=== PATIENT | male | born 1960 | race Two or more races ===

== ENCOUNTER 2017-11-08 10:51 | Inpatient (IN) | payer OTHER ==
[2017-11-08 12:05] VITALS: BMI 23.3
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
[2017-11-08] MEDS ORDERED: ACETAMINOPHEN 325 MG TABLET (FP) PO PRN (13:09)
[2017-11-08] MEDS ORDERED: LOPERAMIDE HCL 2 MG CAPSULE PO PRN (13:09)
[2017-11-08] MEDS ORDERED: P-EPHED 60MG/TRIPROLIDI 2.5MG TABLET PO PRN (13:09)
[2017-11-08] MEDS ORDERED: MAGNESIUM HYDROX 2400MG/30ML ORAL SUSPENSION 30 ML CUP PO PRN (13:09)
[2017-11-08] MEDS ORDERED: MAG HYDROX/AL HYDROX/SIMETH 30 ML UNIT-DOSE CUP PO PRN (13:09)
[2017-11-08] MEDS ORDERED: NICOTINE POLACRILEX 4 MG GUM BUC PRN (13:09)
[2017-11-08] MEDS ORDERED: guaiFENesin/D-METHORPHAN HB 10 ML UNIT-DOSE CUPS PO PRN (13:09)
[2017-11-08] MEDS ORDERED: MENTHOL/PHENOL 1 EACH UD MM PRN (13:09)
[2017-11-08] MEDS ORDERED: MAGNESIUM CITRATE 300 ML BOTTLE PO PRN (13:09)
[2017-11-08] MEDS ORDERED: METHADONE HCL 10 MG TABLET (FOR DETOX USE ONLY) PO ONE ×2 (13:59→23:00)
[2017-11-08] MEDS: diazePAM 5 MG TABLET PO PRN ×2 (15:02→22:23)
[2017-11-08 16:58] LABS: URINE APPEARANCE SLCLOUDY; URINE BILIRUBIN NEGATIVE (NEGATIVE); URINE BLOOD 2+ (NEGATIVE); URINE COLOR YELLOW; URINE GLUCOSE (UA) NEGATIVE (NEGATIVE); URINE KETONE TRACE (NEGATIVE); URINE NITRITE NEGATIVE (NEGATIVE)
[2017-11-08 17:06] LABS: URINE LEUK ESTERASE 3+ (NEGATIVE); URINE PROTEIN 1+ (NEGATIVE)
[2017-11-08 17:26] LABS: URINE BACTERIA RARE /hpf (NONE SEEN); URINE HYALINE CAST 4 /lpf; URINE MUCUS RARE
[2017-11-08] MEDS: THIAMINE HCL 100 MG TABLET (FP) PO SCH (22:23)
[2017-11-09] MEDS: hydrOXYzine PAMOATE 50 MG CAPSULE (FP) PO PRN (00:39)
[2017-11-09] MEDS: diazePAM 5 MG TABLET PO PRN ×3 (06:06→22:46)
[2017-11-09] MEDS ORDERED: METHADONE HCL 10 MG TABLET (FOR DETOX USE ONLY) PO ONE (10:00)
[2017-11-09] MEDS: PRENATAL VITAMINS W/ FOLIC ACID TABLET (FP) PO SCH (10:31)
[2017-11-09] MEDS: NICOTINE 7 MG/24 HOURS TOPICAL PATCH TD SCH (10:31)
[2017-11-09 11:04] LABS: HEMATOCRIT 38.2 % (35.4-49); HEMOGLOBIN 12.5 GM/dL (11.7-16.9); MCH 30.3 pg (25.7-33.7); MCHC 32.8 g/dl (32.0-35.9); MEAN CELL VOLUME 92.3 fl (80-96); MEAN PLT VOLUME 11.3 fl (7.5-11.1); RBC 4.14 M/mm3 (4.00-5.60); RDW 14.6 % (11.9-15.9); WHITE BLOOD COUNT 7.5 K/mm3 (4.0-10.0)
[2017-11-09 11:05] LABS: ALBUMIN 3.4 g/dl (3.4-5.0); ANION GAP 6 (8-16); BLOOD UREA NITROGEN 15 mg/dL (7-18); CALCIUM 8.9 mg/dL (8.5-10.1); CHLORIDE 108 mmol/L (98-107); CO2 28 mmol/L (21-32); GLUCOSE,RANDOM 114 mg/dL (74-106); SODIUM 142 mmol/L (136-145)
[2017-11-09 11:09] LABS: ALK PHOS 117 U/L (45-117); BILIRUBIN,TOTAL 0.3 mg/dL (0.2-1.0); SGOT/AST 13 U/L (15-37); SGPT/ALT 18 U/L (12-78); TOT PROT 6.7 g/dl (6.4-8.2)
[2017-11-09 12:00] LABS: PLATELET COUNT 103 K/MM3 (134-434)
--- NOTE | 2017-11-09 13:22 | PN ---
BHS COWS - Scale Resting Pulse: 0= [place] 80 or Below Sweatin= Chills/Flushing Restless Observation: 1= Difficult to Sit Still Pupil Size: 5= Only [place] Seen Bone or Joint Aches: 2= Severe Diffuse Aches Runny Nose/ Eye Tearin= Nasal Congestion GI Upset > 30mins: 2= Nausea/Diarrhea Tremor Observation of Outstretched Hands: 2= Slight Tremor Visible Yawning Observation: 1= 1-2x During Session Anxiety or Irritability: 2=Irritable/Anxious Goose Flesh Skin: 0=Smooth Skin COWS Score: 17 BHS Progress Note (SOAP) Subjective: Shakes, sweats, headache, N/V and malaise Objective: 11/09/17 13:19 Vital Signs 11/09/17 11/09/17 06:17 09:43 Temperature 98.2 F 97.3 F L Pulse Rate 49 L 88 Respiratory 18 20 Rate Blood Pressure 118/70 129/62 Laboratory Tests 11/08/17 11/09/17 11/09/17 14:40 05:40 05:40 WBC 7.5 D RBC 4.14 Hgb 12.5 Hct 38.2 MCV 92.3 MCH 30.3 MCHC 32.8 RDW 14.6 Plt Count 103 L D MPV 11.3 H D Platelet Comment Sodium 142 Potassium 4.0 Chloride 108 H Carbon Dioxide 28 Anion Gap 6 L BUN 15 D Creatinine 1.0 D Creat Clearance w eGFR > 60 Random Glucose 114 H D Calcium 8.9 Total Bilirubin 0.3 AST 13 L D ALT 18 D Alkaline Phosphatase 117 D Total Protein 6.7 Albumin 3.4 D Urine Color Yellow Urine Appearance Slcloudy Urine pH 5.0 Ur Specific [place] 1.024 Urine Protein 1+ H Urine Glucose (UA) Negative Urine Ketones Trace H Urine Blood 2+ H Urine Nitrite Negative Urine Bilirubin Negative Urine Urobilinogen 2.0 Ur Leukocyte Esterase 3+ H Urine WBC (Auto) 372 Urine RBC (Auto) 24 Urine Bacteria Rare Hyaline Casts 4 Urine Mucus Rare RPR Titer HIV 1&2 Antibody Screen HIV P24 Antigen 11/09/17 11/09/17 05:40 09:15 WBC RBC Hgb Hct MCV MCH MCHC RDW Plt Count MPV Platelet Comment Sodium Potassium Chloride Carbon Dioxide Anion Gap BUN Creatinine Creat Clearance w eGFR Random Glucose Calcium Total Bilirubin AST ALT Alkaline Phosphatase Total Protein Albumin Urine Color Urine Appearance Urine pH Ur Specific [place] Urine Protein Urine Glucose (UA) Urine Ketones Urine Blood Urine Nitrite Urine Bilirubin Urine Urobilinogen Ur Leukocyte Esterase Urine WBC (Auto) Urine RBC (Auto) Urine Bacteria Hyaline Casts Urine Mucus RPR Titer Nonreactive HIV 1&2 Antibody Screen Negative HIV P24 Antigen Negative Lab noted, 3+ leukocyte estrease, he denies hematuria, frequency, flank pain or burning with urination Assessment: 11/09/17 13:21 withdrawals x Plan: Continue detox, repeat UA Urine C/S
--- NOTE | 2017-11-09 13:43 | EKG ---
Test Reason : Blood Pressure : / mmHG Vent. Rate : 053 BPM Atrial Rate : 053 BPM P-R Int : 146 ms QRS Dur : 090 ms QT Int : 434 ms P-R-T Axes : 046 054 037 degrees QTc Int : 407 ms SINUS BRADYCARDIA WITH SINUS ARRHYTHMIA WHEN COMPARED WITH ECG OF 03-AUG-2014 02:51, NO SIGNIFICANT CHANGE WAS FOUND Confirmed by SILVESTRE STEEL MD ([id number]) on 11/09/2017 1:43:16 PM Referred By: Confirmed By:SILVESTRE STEEL MD
[2017-11-09] MEDS: THIAMINE HCL 100 MG TABLET (FP) PO SCH (22:44)
[2017-11-10] MEDS: hydrOXYzine PAMOATE 50 MG CAPSULE (FP) PO PRN (00:49)
[2017-11-10] MEDS: diazePAM 5 MG TABLET PO PRN ×3 (05:03→22:36)
[2017-11-10] MEDS: IBUPROFEN 400 MG TABLET (FP) PO PRN ×2 (07:01→14:41)
[2017-11-10] MEDS ORDERED: METHADONE HCL 5 MG TABLET (FOR DETOX USE ONLY) PO ONE (10:00)
[2017-11-10] MEDS: PRENATAL VITAMINS W/ FOLIC ACID TABLET (FP) PO SCH (10:09)
[2017-11-10] MEDS: NICOTINE 7 MG/24 HOURS TOPICAL PATCH TD SCH (10:10)
--- NOTE | 2017-11-10 13:44 | PN ---
BHS COWS - Scale Resting Pulse: 0= [place] 80 or Below Sweatin= Chills/Flushing Restless Observation: 1= Difficult to Sit Still Pupil Size: 0= Normal to Room Light Bone or Joint Aches: 1= Mild Discomfort Runny Nose/ Eye Tearin= Runny Nose/Eyes GI Upset > 30mins: 2= Nausea/Diarrhea Tremor Observation of Outstretched Hands: 1= Tremor [place], Not Seen Yawning Observation: 0= None Anxiety or Irritability: 2=Irritable/Anxious Goose Flesh Skin: 0=Smooth Skin COWS Score: 10 BHS Progress Note (SOAP) Subjective: Sweating, restless, interrupted sleep, body aches Objective: 11/10/17 13:41 Vital Signs Temperature 98.4 F 11/10/17 09:53 Pulse Rate 68 11/10/17 09:53 Respiratory Rate 16 11/10/17 09:53 Blood Pressure 114/69 11/10/17 09:53 O2 Sat by Pulse Oximetry (%) Laboratory Last Values WBC 7.5 K/mm3 (4.0-10.0) D 11/09/17 05:40 RBC 4.14 M/mm3 (4.00-5.60) 11/09/17 05:40 Hgb 12.5 GM/dL (11.7-16.9) 11/09/17 05:40 Hct 38.2 % (35.4-49) 11/09/17 05:40 MCV 92.3 fl (80-96) 11/09/17 05:40 MCH 30.3 pg (25.7-33.7) 11/09/17 05:40 MCHC 32.8 g/dl (32.0-35.9) 11/09/17 05:40 RDW 14.6 % (11.9-15.9) 11/09/17 05:40 Plt Count 103 K/MM3 (134-434) L D 11/09/17 05:40 MPV 11.3 fl (7.5-11.1) H D 11/09/17 05:40 Platelet Comment 11/09/17 05:40 Sodium 142 mmol/L (136-145) 11/09/17 05:40 Potassium 4.0 mmol/L (3.5-5.1) 11/09/17 05:40 Chloride 108 mmol/L (98-107) H 11/09/17 05:40 Carbon Dioxide 28 mmol/L (21-32) 11/09/17 05:40 Anion Gap 6 (8-16) L 11/09/17 05:40 BUN 15 mg/dL (7-18) D 11/09/17 05:40 Creatinine 1.0 mg/dL (0.7-1.3) D 11/09/17 05:40 Creat Clearance w eGFR > 60 (>60) 11/09/17 05:40 Random Glucose 114 mg/dL (74-106) H D 11/09/17 05:40 Calcium 8.9 mg/dL (8.5-10.1) 11/09/17 05:40 Total Bilirubin 0.3 mg/dL (0.2-1.0) 11/09/17 05:40 AST 13 U/L (15-37) L D 11/09/17 05:40 ALT 18 U/L (12-78) D 11/09/17 05:40 Alkaline Phosphatase 117 U/L (45-117) D 11/09/17 05:40 Total Protein 6.7 g/dl (6.4-8.2) 11/09/17 05:40 Albumin 3.4 g/dl (3.4-5.0) D 11/09/17 05:40 Urine Color Yellow 11/08/17 14:40 Urine Appearance Slcloudy 11/08/17 14:40 Urine pH 5.0 (5.0-8.0) 11/08/17 14:40 Ur Specific [place] 1.024 (1.001-1.035) 11/08/17 14:40 Urine Protein 1+ (NEGATIVE) H 11/08/17 14:40 Urine Glucose (UA) Negative (NEGATIVE) 11/08/17 14:40 Urine Ketones Trace (NEGATIVE) H 11/08/17 14:40 Urine Blood 2+ (NEGATIVE) H 11/08/17 14:40 Urine Nitrite Negative (NEGATIVE) 11/08/17 14:40 Urine Bilirubin Negative (NEGATIVE) 11/08/17 14:40 Urine Urobilinogen 2.0 mg/dL (0.2-1.0) 11/08/17 14:40 Ur Leukocyte Esterase 3+ (NEGATIVE) H 11/08/17 14:40 Urine WBC (Auto) 372 /hpf (3-5) 11/08/17 14:40 Urine RBC (Auto) 24 /hpf (0-3) 11/08/17 14:40 Urine Bacteria Rare /hpf (NONE SEEN) 11/08/17 14:40 Hyaline Casts 4 /lpf 11/08/17 14:40 Urine Mucus Rare 11/08/17 14:40 RPR Titer Nonreactive (NONREACTIVE) 11/09/17 05:40 HIV 1&2 Antibody Screen Negative 11/09/17 09:15 HIV P24 Antigen Negative 11/09/17 09:15 Labs noted, repeat U/A ordered not yet collected Assessment: 11/10/17 13:42 withdrawal sx Plan: Continue detox Collect U/A
[2017-11-10 16:21] LABS: URINE APPEARANCE SLCLOUDY; URINE BILIRUBIN NEGATIVE (NEGATIVE); URINE BLOOD 2+ (NEGATIVE); URINE COLOR YELLOW; URINE GLUCOSE (UA) NEGATIVE (NEGATIVE); URINE KETONE NEGATIVE (NEGATIVE); URINE NITRITE NEGATIVE (NEGATIVE); URINE UROBILINOGEN NEGATIVE mg/dL (0.2-1.0)
[2017-11-10 16:30] LABS: URINE LEUK ESTERASE 3+ (NEGATIVE); URINE PROTEIN 2+ (NEGATIVE)
[2017-11-10 16:44] LABS: EPI CELLS RARE /HPF (FEW); URINE BACTERIA FEW /hpf (NONE SEEN); URINE MUCUS RARE
[2017-11-10] MEDS: THIAMINE HCL 100 MG TABLET (FP) PO SCH (21:31)
[2017-11-11] MEDS: hydrOXYzine PAMOATE 50 MG CAPSULE (FP) PO PRN (00:59)
[2017-11-11] MEDS: diazePAM 5 MG TABLET PO PRN ×2 (05:12→10:09)
[2017-11-11] MEDS ORDERED: METHADONE HCL 5 MG TABLET (FOR DETOX USE ONLY) PO ONE (10:00)
[2017-11-11] MEDS: PRENATAL VITAMINS W/ FOLIC ACID TABLET (FP) PO SCH (10:09)
[2017-11-11] MEDS: NICOTINE 7 MG/24 HOURS TOPICAL PATCH TD SCH (10:10)
[2017-11-11] MEDS ORDERED: diphenhydrAMINE HCL 50 MG CAPSULE PO PRN (10:13)
--- NOTE | 2017-11-11 10:47 | PN ---
BHS Progress Note (SOAP) Subjective: Sweating, chills, interrupted sleep Objective: 11/11/17 10:46 Last Vital Signs Temp Pulse Resp BP Pulse Ox 97 F L 63 18 126/79 11/11/17 06:03 11/11/17 06:03 11/11/17 06:03 11/11/17 06:03 Laboratory Tests 11/08/17 11/09/17 11/09/17 14:40 05:40 05:40 WBC 7.5 D RBC 4.14 Hgb 12.5 Hct 38.2 MCV 92.3 MCH 30.3 MCHC 32.8 RDW 14.6 Plt Count 103 L D MPV 11.3 H D Platelet Comment Sodium 142 Potassium 4.0 Chloride 108 H Carbon Dioxide 28 Anion Gap 6 L BUN 15 D Creatinine 1.0 D Creat Clearance w eGFR > 60 Random Glucose 114 H D Calcium 8.9 Total Bilirubin 0.3 AST 13 L D ALT 18 D Alkaline Phosphatase 117 D Total Protein 6.7 Albumin 3.4 D Urine Color Yellow Urine Appearance Slcloudy Urine pH 5.0 Ur Specific [place] 1.024 Urine Protein 1+ H Urine Glucose (UA) Negative Urine Ketones Trace H Urine Blood 2+ H Urine Nitrite Negative Urine Bilirubin Negative Urine Urobilinogen 2.0 Ur Leukocyte Esterase 3+ H Urine WBC (Auto) 372 Urine RBC (Auto) 24 Ur Epithelial Cells Urine Bacteria Rare Hyaline Casts 4 Urine Mucus Rare RPR Titer HIV 1&2 Antibody Screen HIV P24 Antigen 11/09/17 11/09/17 11/10/17 05:40 09:15 15:30 WBC RBC Hgb Hct MCV MCH MCHC RDW Plt Count MPV Platelet Comment Sodium Potassium Chloride Carbon Dioxide Anion Gap BUN Creatinine Creat Clearance w eGFR Random Glucose Calcium Total Bilirubin AST ALT Alkaline Phosphatase Total Protein Albumin Urine Color Yellow Urine Appearance Slcloudy Urine pH 7.0 D Ur Specific [place] 1.014 Urine Protein 2+ H Urine Glucose (UA) Negative Urine Ketones Negative Urine Blood 2+ H Urine Nitrite Negative Urine Bilirubin Negative Urine Urobilinogen Negative Ur Leukocyte Esterase 3+ H Urine WBC (Auto) 43 Urine RBC (Auto) 137 Ur Epithelial Cells Rare Urine Bacteria Few Hyaline Casts Urine Mucus Rare RPR Titer Nonreactive HIV 1&2 Antibody Screen Negative HIV P24 Antigen Negative Labs noted: abnormal UA Assessment: 11/11/17 10:46 Withdrawal symptoms Abnormal UA noted Plan: Continue detox Abnormal UA: encouraged to drink lots of water, follow up on urine culture
[2017-11-11] MEDS: THIAMINE HCL 100 MG TABLET (FP) PO SCH ×2 (22:26→22:33)
[2017-11-12] MEDS ORDERED: diphenhydrAMINE HCL 25 MG CAPSULE (FP) PO ONE (01:26)
[2017-11-12 06:48] VITALS: BP 123/74; PULSE 66; TEMP 98.1
[2017-11-12] MEDS ORDERED: METHADONE HCL 5 MG TABLET (FOR DETOX USE ONLY) PO ONE (09:15)
[2017-11-12] MEDS: NICOTINE 7 MG/24 HOURS TOPICAL PATCH TD SCH (09:38)
[2017-11-12] MEDS: PRENATAL VITAMINS W/ FOLIC ACID TABLET (FP) PO SCH (09:38)
[2017-11-12] MEDS ORDERED: METHADONE HCL 10 MG TABLET (FOR DETOX USE ONLY) PO ONE (10:00)
--- NOTE | 2017-11-12 11:26 | DS ---
[facility] Detox Discharge Summary Admission Date: 11/08/17 Discharge Date: 11/12/17 - History Present History: Opioid Dependence Additional Comments: Patient requested to be discharged today because he has a psychiatry appointment today at 2:30pm. He denies any withdrawal symptoms or any s/sx of UTI. Patient agreed to take methadone 5mg PO today and wait for at least an hour before leaving. As per patient, he kept putting off his psychiatry appointment and wants to keep this one. He denies any intention to go out and use drugs post discharge. He is presently without any complaints. Patient instructed to see his PCP within 3 days post discharge. He is stable for discharge today and doesn't display any withdrawal symptoms. Pertinent Past History: Denies - Physical Exam Results Vital Signs: Vital Signs Temperature 98.1 F 11/12/17 06:47 Pulse Rate 66 11/12/17 06:47 Respiratory Rate 18 11/12/17 06:47 Blood Pressure 123/74 11/12/17 06:47 O2 Sat by Pulse Oximetry (%) Pertinent Admission Physical Exam Findings: Withdrawal symptoms Laboratory Tests 11/08/17 11/09/17 11/09/17 14:40 05:40 05:40 WBC 7.5 D RBC 4.14 Hgb 12.5 Hct 38.2 MCV 92.3 MCH 30.3 MCHC 32.8 RDW 14.6 Plt Count 103 L D MPV 11.3 H D Platelet Comment Sodium 142 Potassium 4.0 Chloride 108 H Carbon Dioxide 28 Anion Gap 6 L BUN 15 D Creatinine 1.0 D Creat Clearance w eGFR > 60 Random Glucose 114 H D Calcium 8.9 Total Bilirubin 0.3 AST 13 L D ALT 18 D Alkaline Phosphatase 117 D Total Protein 6.7 Albumin 3.4 D Urine Color Yellow Urine Appearance Slcloudy Urine pH 5.0 Ur Specific [place] 1.024 Urine Protein 1+ H Urine Glucose (UA) Negative Urine Ketones Trace H Urine Blood 2+ H Urine Nitrite Negative Urine Bilirubin Negative Urine Urobilinogen 2.0 Ur Leukocyte Esterase 3+ H Urine WBC (Auto) 372 Urine RBC (Auto) 24 Ur Epithelial Cells Urine Bacteria Rare Hyaline Casts 4 Urine Mucus Rare RPR Titer HIV 1&2 Antibody Screen HIV P24 Antigen 11/09/17 11/09/17 11/10/17 05:40 09:15 15:30 WBC RBC Hgb Hct MCV MCH MCHC RDW Plt Count MPV Platelet Comment Sodium Potassium Chloride Carbon Dioxide Anion Gap BUN Creatinine Creat Clearance w eGFR Random Glucose Calcium Total Bilirubin AST ALT Alkaline Phosphatase Total Protein Albumin Urine Color Yellow Urine Appearance Slcloudy Urine pH 7.0 D Ur Specific [place] 1.014 Urine Protein 2+ H Urine Glucose (UA) Negative Urine Ketones Negative Urine Blood 2+ H Urine Nitrite Negative Urine Bilirubin Negative Urine Urobilinogen Negative Ur Leukocyte Esterase 3+ H Urine WBC (Auto) 43 Urine RBC (Auto) 137 Ur Epithelial Cells Rare Urine Bacteria Few Hyaline Casts Urine Mucus Rare RPR Titer Nonreactive HIV 1&2 Antibody Screen Negative HIV P24 Antigen Negative Labs noted: abnormal UA, urine cx: + group D strep-enterococcus 50-60,000 cfu/ml ; instructed to f/u with PCP within 3 days (denies any UTI sxs) - Treatment Hospital Course: Detox Protocol Followed, Detoxed Safely, Responded well, Discharged Condition Good - Medication Discharge Medications: Ambulatory Orders NK [No Known Home Medication] 11/08/17 - Diagnosis (1) Opioid dependence with withdrawal Current Visit: Yes Status: Acute (2) Abnormal urinalysis Current Visit: Yes Status: Acute - AMA Did Patient Leave Against Medical Advice: No (F/U with PCP within 3 days)
[2017-11-13] MEDS ORDERED: METHADONE HCL 5 MG TABLET (FOR DETOX USE ONLY) PO ONE (06:00)
== END 2017-11-12 16:05 | disposition home or self-care (01) | DRG 773 ==
LOC: YASAS 10:51 → Y3N 13:26
PROVIDERS: ADMIT Internal Medicine; ATTEND Internal Medicine
PROC: HZ2ZZZZ Detoxification Services for Substance Abuse Treatment (ICD-10-PCS; principal; 2017-11-08)
DX: F11.23 Opioid dependence with withdrawal (principal); F12.20 Cannabis dependence, uncomplicated; F17.210 Nicotine dependence, cigarettes, uncomplicated; R82.90 Unspecified abnormal findings in urine
CPT/HCPCS: 36415; 71046-TC; 80053; 81003; 81015; 85027; 86593; 87086; 87186; 87389; 93005; 93010

== ENCOUNTER 2018-08-25 11:21 | Inpatient (IN) | payer OTHER ==
[2018-08-25 13:44] VITALS: BMI 24.2
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
[2018-08-25] MEDS ORDERED: P-EPHED 60MG/TRIPROLIDI 2.5MG TABLET PO PRN (15:30)
[2018-08-25] MEDS ORDERED: MAGNESIUM HYDROX 2400MG/30ML ORAL SUSPENSION 30 ML CUP PO PRN (15:30)
[2018-08-25] MEDS ORDERED: NICOTINE POLACRILEX 4 MG GUM BC PRN (15:30)
[2018-08-25] MEDS ORDERED: MAG HYDROX/AL HYDROX/SIMETH 30 ML UNIT-DOSE CUP PO PRN (15:30)
[2018-08-25] MEDS ORDERED: MENTHOL/PHENOL 1 EACH UD MM PRN (15:30)
[2018-08-25] MEDS ORDERED: IBUPROFEN 400 MG TABLET (FP) PO PRN (15:30)
[2018-08-25] MEDS ORDERED: guaiFENesin/D-METHORPHAN HB 10 ML UNIT-DOSE CUPS PO PRN (15:30)
[2018-08-25] MEDS ORDERED: MAGNESIUM CITRATE 300 ML BOTTLE PO PRN (15:30)
[2018-08-25] MEDS ORDERED: ACETAMINOPHEN 325 MG TABLET (FP) PO PRN (15:30)
[2018-08-25] MEDS ORDERED: LOPERAMIDE HCL 2 MG CAPSULE PO PRN (15:30)
[2018-08-25] MEDS ORDERED: METHADONE HCL 10 MG TABLET (FOR DETOX USE ONLY) PO ONE ×2 (16:30→23:00)
[2018-08-25] MEDS: diazePAM 5 MG TABLET PO PRN (17:59)
[2018-08-25] MEDS: MELATONIN 5 MG TABLETS PO PRN (22:41)
[2018-08-25] MEDS: THIAMINE HCL 100 MG TABLET (FP) PO SCH (22:41)
[2018-08-25 23:51] LABS: URINE APPEARANCE CLOUDY; URINE BILIRUBIN NEGATIVE (<2.0 mg/dL); URINE COLOR YELLOW; URINE GLUCOSE (UA) NEGATIVE (NEGATIVE); URINE KETONE NEGATIVE (NEGATIVE); URINE LEUK ESTERASE 3+ (NEGATIVE); URINE NITRITE NEGATIVE (NEGATIVE); URINE PROTEIN NEGATIVE (NEGATIVE); URINE UROBILINOGEN NEGATIVE mg/dL (0.2-1.0)
[2018-08-26 00:19] LABS: EPI CELLS RARE /HPF (FEW); URINE BACTERIA FEW /hpf (NONE SEEN); URINE MUCUS FEW
[2018-08-26] MEDS: diazePAM 5 MG TABLET PO PRN ×3 (06:12→22:03)
[2018-08-26] MEDS ORDERED: METHADONE HCL 10 MG TABLET (FOR DETOX USE ONLY) PO ONE (10:00)
[2018-08-26] MEDS: PRENATAL VITAMINS W/ FOLIC ACID TABLET (FP) PO SCH (10:23)
[2018-08-26] MEDS: NICOTINE 21 MG/24 HOURS TOPICAL PATCH TD SCH (10:23)
[2018-08-26 10:27] LABS: HEMATOCRIT 39.5 % (35.4-49); HEMOGLOBIN 12.8 GM/dL (11.7-16.9); MCH 29.6 pg (25.7-33.7); MCHC 32.3 g/dl (32.0-35.9); MEAN CELL VOLUME 91.5 fl (80-96); MEAN PLT VOLUME 11.8 fl (7.5-11.1); PLATELET COUNT 112 K/MM3 (134-434); RBC 4.32 M/mm3 (4.00-5.60); RDW 13.9 % (11.9-15.9); WHITE BLOOD COUNT 6.2 K/mm3 (4.0-10.0)
[2018-08-26 11:16] LABS: ALBUMIN 3.4 g/dl (3.4-5.0); ALK PHOS 99 U/L (45-117); ANION GAP 11 MMOL/L (8-16); BILIRUBIN,TOTAL 0.6 mg/dL (0.2-1); BLOOD UREA NITROGEN 15 mg/dL (7-18); CALCIUM 8.9 mg/dL (8.5-10.1); CHLORIDE 110 mmol/L (98-107); CO2 25 mmol/L (21-32); CREATININE 0.8 mg/dL (0.55-1.3); GLUCOSE,RANDOM 105 mg/dL (74-106); POTASSIUM 3.8 mmol/L (3.5-5.1); SGOT/AST 15 U/L (15-37); SGPT/ALT 16 U/L (13-61); SODIUM 145 mmol/L (136-145); TOT PROT 6.6 g/dl (6.4-8.2)
--- NOTE | 2018-08-26 13:00 | EKG ---
Test Reason : Blood Pressure : / mmHG Vent. Rate : 077 BPM Atrial Rate : 077 BPM P-R Int : 148 ms QRS Dur : 092 ms QT Int : 398 ms P-R-T Axes : 039 040 027 degrees QTc Int : 450 ms NORMAL SINUS RHYTHM NORMAL ECG Confirmed by MD BLAIR GREGORY ([id number]) on 08/26/2018 1:00:12 PM Referred By: Confirmed By:SYED BLAIR MD
--- NOTE | 2018-08-26 14:13 | PN ---
BHS COWS - Scale Resting Pulse: 0= [place] 80 or Below Sweatin= Chills/Flushing Restless Observation: 3= Extraneous Movement Pupil Size: 1= Pupils >than Normal Bone or Joint Aches: 2= Severe Diffuse Aches Runny Nose/ Eye Tearin= Runny Nose/Eyes GI Upset > 30mins: 2= Nausea/Diarrhea Tremor Observation of Outstretched Hands: 2= Slight Tremor Visible Yawning Observation: 1= 1-2x During Session Anxiety or Irritability: 2=Irritable/Anxious Goose Flesh Skin: 0=Smooth Skin COWS Score: 16 S Progress Note (SOAP) Subjective: Tremor, chills, sweating, interrupted sleep Objective: 08/26/18 14:10 Last Vital Signs Temp Pulse Resp BP Pulse Ox 96.6 F L 66 18 118/74 08/26/18 13:19 08/26/18 13:19 08/26/18 13:19 08/26/18 13:19 Laboratory Tests 08/25/18 08/26/18 08/26/18 22:22 07:30 07:30 WBC 6.2 RBC 4.32 Hgb 12.8 Hct 39.5 MCV 91.5 MCH 29.6 MCHC 32.3 RDW 13.9 Plt Count 112 L MPV 11.8 H Sodium 145 Potassium 3.8 Chloride 110 H Carbon Dioxide 25 Anion Gap 11 BUN 15 Creatinine 0.8 Creat Clearance w eGFR > 60 Random Glucose 105 Calcium 8.9 Total Bilirubin 0.6 AST 15 ALT 16 Alkaline Phosphatase 99 Total Protein 6.6 Albumin 3.4 Urine Color Yellow Urine Appearance Cloudy Urine pH 5.0 D Ur Specific [place] 1.021 Urine Protein Negative Urine Glucose (UA) Negative Urine Ketones Negative Urine Blood Negative Urine Nitrite Negative Urine Bilirubin Negative Urine Urobilinogen Negative Ur Leukocyte Esterase 3+ H Urine WBC (Auto) 104 Urine RBC (Auto) 45 Ur Epithelial Cells Rare Urine Bacteria Few Urine Mucus Few Labs reviewed: abnormal UA Assessment: 08/26/18 14:13 Withdrawal symptoms Noted with abnormal UA Plan: Continue detox Abnormal UA: encouraged PO water intake, repeat UA, send urine cx to rule out UTI
[2018-08-26] MEDS: THIAMINE HCL 100 MG TABLET (FP) PO SCH (22:01)
[2018-08-26] MEDS: MELATONIN 5 MG TABLETS PO PRN (22:44)
[2018-08-26 23:44] LABS: URINE APPEARANCE CLOUDY; URINE BILIRUBIN NEGATIVE (<2.0 mg/dL); URINE COLOR YELLOW; URINE GLUCOSE (UA) NEGATIVE (NEGATIVE); URINE KETONE NEGATIVE (NEGATIVE); URINE LEUK ESTERASE 2+ (NEGATIVE); URINE NITRITE NEGATIVE (NEGATIVE); URINE PROTEIN 1+ (NEGATIVE); URINE UROBILINOGEN NEGATIVE mg/dL (0.2-1.0)
[2018-08-26 23:56] LABS: EPI CELLS RARE /HPF (FEW); URINE MUCUS RARE
[2018-08-26 23:57] LABS: URINE SPERM RARE
[2018-08-27] MEDS: diazePAM 5 MG TABLET PO PRN ×3 (08:36→22:07)
[2018-08-27] MEDS ORDERED: METHADONE HCL 5 MG TABLET (FOR DETOX USE ONLY) PO ONE (10:00)
[2018-08-27] MEDS: PRENATAL VITAMINS W/ FOLIC ACID TABLET (FP) PO SCH (10:43)
[2018-08-27] MEDS: NICOTINE 21 MG/24 HOURS TOPICAL PATCH TD SCH (10:43)
--- NOTE | 2018-08-27 12:53 | PN ---
[facility] COWS - Scale Resting Pulse: 0= PA 80 or Below Sweatin= Chills/Flushing Restless Observation: 3= Extraneous Movement Pupil Size: 0= Normal to Room Light Bone or Joint Aches: 2= Severe Diffuse Aches Runny Nose/ Eye Tearin= Runny Nose/Eyes GI Upset > 30mins: 1= Stomach Cramp Tremor Observation of Outstretched Hands: 2= Slight Tremor Visible Yawning Observation: 1= 1-2x During Session Anxiety or Irritability: 2=Irritable/Anxious Goose Flesh Skin: 0=Smooth Skin COWS Score: 14 S Progress Note (SOAP) Subjective: Tremor, chills, sweating, interrupted sleep Objective: 08/27/18 12:49 Last Vital Signs Temp Pulse Resp BP Pulse Ox 98.2 F 53 L 18 141/96 08/27/18 10:46 08/27/18 10:46 08/27/18 10:46 08/27/18 10:46 Laboratory Tests 08/25/18 08/26/18 08/26/18 22:22 07:30 07:30 WBC 6.2 RBC 4.32 Hgb 12.8 Hct 39.5 MCV 91.5 MCH 29.6 MCHC 32.3 RDW 13.9 Plt Count 112 L MPV 11.8 H Sodium 145 Potassium 3.8 Chloride 110 H Carbon Dioxide 25 Anion Gap 11 BUN 15 Creatinine 0.8 Creat Clearance w eGFR > 60 Random Glucose 105 Calcium 8.9 Total Bilirubin 0.6 AST 15 ALT 16 Alkaline Phosphatase 99 Total Protein 6.6 Albumin 3.4 Urine Color Yellow Urine Appearance Cloudy Urine pH 5.0 D Ur Specific [place] 1.021 Urine Protein Negative Urine Glucose (UA) Negative Urine Ketones Negative Urine Blood Negative Urine Nitrite Negative Urine Bilirubin Negative Urine Urobilinogen Negative Ur Leukocyte Esterase 3+ H Urine WBC (Auto) 104 Urine RBC (Auto) 45 Ur Epithelial Cells Rare Urine Bacteria Few Urine Mucus Few RPR Titer 08/26/18 08/26/18 08:00 18:47 WBC RBC Hgb Hct MCV MCH MCHC RDW Plt Count MPV Sodium Potassium Chloride Carbon Dioxide Anion Gap BUN Creatinine Creat Clearance w eGFR Random Glucose Calcium Total Bilirubin AST ALT Alkaline Phosphatase Total Protein Albumin Urine Color Yellow Urine Appearance Cloudy Urine pH 6.0 Ur Specific [place] 1.025 Urine Protein 1+ H Urine Glucose (UA) Negative Urine Ketones Negative Urine Blood 1+ H Urine Nitrite Negative Urine Bilirubin Negative Urine Urobilinogen Negative Ur Leukocyte Esterase 2+ H Urine WBC (Auto) 93 Urine RBC (Auto) 39 Ur Epithelial Cells Rare Urine Bacteria Urine Mucus Rare RPR Titer Nonreactive Labs reviewed: abnormal UA (repeated) Assessment: 08/27/18 12:53 Withdrawal symptoms Noted with elevated blood pressure and abnormal UA Plan: Continue detox Elevated blood pressure: most likely due withdrawal, start clonidine 0.1mg PO q8hr prn Abnormal UA: encouraged PO water intake, follow up on urine culture result
[2018-08-27] MEDS: amLODIPine BESYLATE 5 MG TABLET (FP) PO SCH (15:08)
[2018-08-27] MEDS: THIAMINE HCL 100 MG TABLET (FP) PO SCH (22:07)
[2018-08-27] MEDS: MELATONIN 5 MG TABLETS PO PRN (22:08)
[2018-08-28] MEDS: diazePAM 5 MG TABLET PO PRN ×2 (05:31→10:37)
[2018-08-28] MEDS ORDERED: METHADONE HCL 5 MG TABLET (FOR DETOX USE ONLY) PO ONE (10:00)
[2018-08-28] MEDS: amLODIPine BESYLATE 5 MG TABLET (FP) PO SCH (10:36)
[2018-08-28] MEDS: PRENATAL VITAMINS W/ FOLIC ACID TABLET (FP) PO SCH (10:36)
[2018-08-28] MEDS: NICOTINE 21 MG/24 HOURS TOPICAL PATCH TD SCH (11:01)
--- NOTE | 2018-08-28 14:35 | PN ---
[facility] Progress Note (SOAP) Subjective: Tremor, chills, sweating, stomach ache Objective: 08/28/18 14:31 Last Vital Signs Temp Pulse Resp BP Pulse Ox 96.4 F L 67 18 123/79 08/28/18 14:02 08/28/18 14:02 08/28/18 14:02 08/28/18 14:02 Laboratory Tests 08/25/18 08/26/18 08/26/18 22:22 07:30 07:30 WBC 6.2 RBC 4.32 Hgb 12.8 Hct 39.5 MCV 91.5 MCH 29.6 MCHC 32.3 RDW 13.9 Plt Count 112 L MPV 11.8 H Sodium 145 Potassium 3.8 Chloride 110 H Carbon Dioxide 25 Anion Gap 11 BUN 15 Creatinine 0.8 Creat Clearance w eGFR > 60 Random Glucose 105 Calcium 8.9 Total Bilirubin 0.6 AST 15 ALT 16 Alkaline Phosphatase 99 Total Protein 6.6 Albumin 3.4 Urine Color Yellow Urine Appearance Cloudy Urine pH 5.0 D Ur Specific [place] 1.021 Urine Protein Negative Urine Glucose (UA) Negative Urine Ketones Negative Urine Blood Negative Urine Nitrite Negative Urine Bilirubin Negative Urine Urobilinogen Negative Ur Leukocyte Esterase 3+ H Urine WBC (Auto) 104 Urine RBC (Auto) 45 Ur Epithelial Cells Rare Urine Bacteria Few Urine Mucus Few RPR Titer 08/26/18 08/26/18 08:00 18:47 WBC RBC Hgb Hct MCV MCH MCHC RDW Plt Count MPV Sodium Potassium Chloride Carbon Dioxide Anion Gap BUN Creatinine Creat Clearance w eGFR Random Glucose Calcium Total Bilirubin AST ALT Alkaline Phosphatase Total Protein Albumin Urine Color Yellow Urine Appearance Cloudy Urine pH 6.0 Ur Specific [place] 1.025 Urine Protein 1+ H Urine Glucose (UA) Negative Urine Ketones Negative Urine Blood 1+ H Urine Nitrite Negative Urine Bilirubin Negative Urine Urobilinogen Negative Ur Leukocyte Esterase 2+ H Urine WBC (Auto) 93 Urine RBC (Auto) 39 Ur Epithelial Cells Rare Urine Bacteria Urine Mucus Rare RPR Titer Nonreactive Labs reviewed: abnormal UA, Urine cx preliminary: group d strep or enteroccous > 100,000 cfu/ml, strep agalactiae group b >100, 000 cfu/ml (result discussed with Dr. Duque) Assessment: 08/28/18 14:33 Withdrawal symptoms Noted with UTI Plan: Continue detox Encouraged PO water intake UTI: start bactrim DS PO bid x 10 days, follow up on urine c&s result and adjust antibiotic accordingly if warranted
[2018-08-28] MEDS: hydrOXYzine PAMOATE 50 MG CAPSULE (FP) PO PRN ×2 (17:39→22:06)
[2018-08-28] MEDS: SULFAMETHOXAZOLE/TRIMETHOPRIM 800MG/160MG D.S. TABLET PO SCH (22:06)
[2018-08-28] MEDS: THIAMINE HCL 100 MG TABLET (FP) PO SCH (22:06)
[2018-08-29] MEDS ORDERED: METHADONE HCL 10 MG TABLET (FOR DETOX USE ONLY) PO ONE (10:00)
[2018-08-29] MEDS: PRENATAL VITAMINS W/ FOLIC ACID TABLET (FP) PO SCH (10:18)
[2018-08-29] MEDS: amLODIPine BESYLATE 5 MG TABLET (FP) PO SCH (10:18)
[2018-08-29] MEDS: SULFAMETHOXAZOLE/TRIMETHOPRIM 800MG/160MG D.S. TABLET PO SCH ×2 (10:18→22:05)
[2018-08-29] MEDS: NICOTINE 21 MG/24 HOURS TOPICAL PATCH TD SCH (10:18)
[2018-08-29] MEDS: hydrOXYzine PAMOATE 50 MG CAPSULE (FP) PO PRN (10:19)
--- NOTE | 2018-08-29 14:14 | PN ---
[facility] Progress Note (SOAP) Subjective: Sweating, interrupted sleep Objective: 08/29/18 14:10 Last Vital Signs Temp Pulse Resp BP Pulse Ox 98.6 F 75 18 128/89 08/29/18 13:53 08/29/18 13:53 08/29/18 13:53 08/29/18 13:53 Laboratory Tests 08/25/18 08/26/18 08/26/18 22:22 07:30 07:30 WBC 6.2 RBC 4.32 Hgb 12.8 Hct 39.5 MCV 91.5 MCH 29.6 MCHC 32.3 RDW 13.9 Plt Count 112 L MPV 11.8 H Sodium 145 Potassium 3.8 Chloride 110 H Carbon Dioxide 25 Anion Gap 11 BUN 15 Creatinine 0.8 Creat Clearance w eGFR > 60 Random Glucose 105 Calcium 8.9 Total Bilirubin 0.6 AST 15 ALT 16 Alkaline Phosphatase 99 Total Protein 6.6 Albumin 3.4 Urine Color Yellow Urine Appearance Cloudy Urine pH 5.0 D Ur Specific [place] 1.021 Urine Protein Negative Urine Glucose (UA) Negative Urine Ketones Negative Urine Blood Negative Urine Nitrite Negative Urine Bilirubin Negative Urine Urobilinogen Negative Ur Leukocyte Esterase 3+ H Urine WBC (Auto) 104 Urine RBC (Auto) 45 Ur Epithelial Cells Rare Urine Bacteria Few Urine Mucus Few RPR Titer 08/26/18 08/26/18 08:00 18:47 WBC RBC Hgb Hct MCV MCH MCHC RDW Plt Count MPV Sodium Potassium Chloride Carbon Dioxide Anion Gap BUN Creatinine Creat Clearance w eGFR Random Glucose Calcium Total Bilirubin AST ALT Alkaline Phosphatase Total Protein Albumin Urine Color Yellow Urine Appearance Cloudy Urine pH 6.0 Ur Specific [place] 1.025 Urine Protein 1+ H Urine Glucose (UA) Negative Urine Ketones Negative Urine Blood 1+ H Urine Nitrite Negative Urine Bilirubin Negative Urine Urobilinogen Negative Ur Leukocyte Esterase 2+ H Urine WBC (Auto) 93 Urine RBC (Auto) 39 Ur Epithelial Cells Rare Urine Bacteria Urine Mucus Rare RPR Titer Nonreactive Labs reviewed: acute UTI, urine c&s final result shows faecalis strep agalactiae group B Assessment: 08/29/18 14:11 Withdrawal symptoms Noted with Acute UTI Plan: Continue detox Acute UTI: encouraged PO water intake, continue bactrim, follow up with PCP within 2 weeks post discharge
[2018-08-29] MEDS: THIAMINE HCL 100 MG TABLET (FP) PO SCH (22:05)
[2018-08-29] MEDS: MELATONIN 5 MG TABLETS PO PRN (22:05)
[2018-08-30] MEDS: hydrOXYzine PAMOATE 50 MG CAPSULE (FP) PO PRN ×3 (01:32→10:12)
[2018-08-30] MEDS ORDERED: METHADONE HCL 5 MG TABLET (FOR DETOX USE ONLY) PO ONE (06:00)
--- NOTE | 2018-08-30 09:21 | DS ---
[facility] Detox Discharge Summary Admission Date: 08/25/18 Discharge Date: 08/30/18 - History Present History: Cannabis Dependence, Opioid Dependence - Physical Exam Results Vital Signs: Vital Signs Temperature 97.5 F L 08/30/18 06:22 Pulse Rate 70 08/30/18 06:22 Respiratory Rate 18 08/30/18 06:22 Blood Pressure 121/76 08/30/18 06:22 O2 Sat by Pulse Oximetry (%) - Medication Discharge Medications: Ambulatory Orders NK [No Known Home Medication] 11/08/17
[2018-08-30] MEDS: amLODIPine BESYLATE 5 MG TABLET (FP) PO SCH (10:11)
[2018-08-30] MEDS: PRENATAL VITAMINS W/ FOLIC ACID TABLET (FP) PO SCH (10:11)
[2018-08-30] MEDS ORDERED: HYDROCORTISONE 1% TOPICAL OINT 30 GM TUBE TP PRN (10:12)
[2018-08-30] MEDS: SULFAMETHOXAZOLE/TRIMETHOPRIM 800MG/160MG D.S. TABLET PO SCH ×2 (10:12→22:28)
[2018-08-30] MEDS: NICOTINE 21 MG/24 HOURS TOPICAL PATCH TD SCH (10:13)
--- NOTE | 2018-08-30 15:02 | PN ---
[facility] Progress Note Note: Vital Signs Temperature 96.7 F L 08/30/18 14:03 Pulse Rate 78 08/30/18 14:03 Respiratory Rate 18 08/30/18 14:03 Blood Pressure 111/78 08/30/18 14:03 O2 Sat by Pulse Oximetry (%) Laboratory Last Values WBC 6.2 K/mm3 (4.0-10.0) 08/26/18 07:30 RBC 4.32 M/mm3 (4.00-5.60) 08/26/18 07:30 Hgb 12.8 GM/dL (11.7-16.9) 08/26/18 07:30 Hct 39.5 % (35.4-49) 08/26/18 07:30 MCV 91.5 fl (80-96) 08/26/18 07:30 MCH 29.6 pg (25.7-33.7) 08/26/18 07:30 MCHC 32.3 g/dl (32.0-35.9) 08/26/18 07:30 RDW 13.9 % (11.9-15.9) 08/26/18 07:30 Plt Count 112 K/MM3 (134-434) L 08/26/18 07:30 MPV 11.8 fl (7.5-11.1) H 08/26/18 07:30 Sodium 145 mmol/L (136-145) 08/26/18 07:30 Potassium 3.8 mmol/L (3.5-5.1) 08/26/18 07:30 Chloride 110 mmol/L (98-107) H 08/26/18 07:30 Carbon Dioxide 25 mmol/L (21-32) 08/26/18 07:30 Anion Gap 11 MMOL/L (8-16) 08/26/18 07:30 BUN 15 mg/dL (7-18) 08/26/18 07:30 Creatinine 0.8 mg/dL (0.55-1.3) 08/26/18 07:30 Creat Clearance w eGFR > 60 (>60) 08/26/18 07:30 Random Glucose 105 mg/dL (74-106) 08/26/18 07:30 Calcium 8.9 mg/dL (8.5-10.1) 08/26/18 07:30 Total Bilirubin 0.6 mg/dL (0.2-1) 08/26/18 07:30 AST 15 U/L (15-37) 08/26/18 07:30 ALT 16 U/L (13-61) 08/26/18 07:30 Alkaline Phosphatase 99 U/L (45-117) 08/26/18 07:30 Total Protein 6.6 g/dl (6.4-8.2) 08/26/18 07:30 Albumin 3.4 g/dl (3.4-5.0) 08/26/18 07:30 Urine Color Yellow 08/26/18 18:47 Urine Appearance Cloudy 08/26/18 18:47 Urine pH 6.0 (5.0-8.0) 08/26/18 18:47 Ur Specific [place] 1.025 (1.010-1.035) 08/26/18 18:47 Urine Protein 1+ (NEGATIVE) H 08/26/18 18:47 Urine Glucose (UA) Negative (NEGATIVE) 08/26/18 18:47 Urine Ketones Negative (NEGATIVE) 08/26/18 18:47 Urine Blood 1+ (NEGATIVE) H 08/26/18 18:47 Urine Nitrite Negative (NEGATIVE) 08/26/18 18:47 Urine Bilirubin Negative (<2.0 mg/dL) 08/26/18 18:47 Urine Urobilinogen Negative mg/dL (0.2-1.0) 08/26/18 18:47 Ur Leukocyte Esterase 2+ (NEGATIVE) H 08/26/18 18:47 Urine WBC (Auto) 93 /hpf (3-5) 08/26/18 18:47 Urine RBC (Auto) 39 /hpf (0-3) 08/26/18 18:47 Ur Epithelial Cells Rare /HPF (FEW) 08/26/18 18:47 Urine Bacteria Few /hpf (NONE SEEN) 08/25/18 22:22 Urine Mucus Rare 08/26/18 18:47 RPR Titer Nonreactive (NONREACTIVE) 08/26/18 08:00 c/o anxious, itchy skin on both arms x 1 month, interrupted sleep Aox3 no distress no adventitious breath sounds skin intact, no erythema full ROM ambulating in the unit withdrawal sx increase PO fluids continue detox TP hydrocortisone dc in AM
[2018-08-30] MEDS: THIAMINE HCL 100 MG TABLET (FP) PO SCH (22:28)
[2018-08-30] MEDS: MELATONIN 5 MG TABLETS PO PRN (22:29)
[2018-08-31] MEDS: hydrOXYzine PAMOATE 50 MG CAPSULE (FP) PO PRN (05:39)
[2018-08-31 09:55] VITALS: BP 134/88; PULSE 79; TEMP 96.1
[2018-08-31] MEDS: NICOTINE 21 MG/24 HOURS TOPICAL PATCH TD SCH (11:37)
[2018-08-31] MEDS: SULFAMETHOXAZOLE/TRIMETHOPRIM 800MG/160MG D.S. TABLET PO SCH (11:37)
[2018-08-31] MEDS: amLODIPine BESYLATE 5 MG TABLET (FP) PO SCH (11:37)
[2018-08-31] MEDS: PRENATAL VITAMINS W/ FOLIC ACID TABLET (FP) PO SCH (11:37)
--- NOTE | 2018-08-31 14:26 | DS ---
[facility] Detox Discharge Summary Admission Date: 08/25/18 Discharge Date: 08/31/18 - History Present History: Cannabis Dependence, Opioid Dependence Pertinent Past History: HTN PPD Positive - Physical Exam Results Vital Signs: Vital Signs Temperature 96.1 F L 08/31/18 09:55 Pulse Rate 79 08/31/18 09:55 Respiratory Rate 18 08/31/18 09:55 Blood Pressure 134/88 08/31/18 09:55 O2 Sat by Pulse Oximetry (%) Pertinent Admission Physical Exam Findings: Withdrawal symptoms Laboratory Tests 08/25/18 08/26/18 08/26/18 22:22 07:30 07:30 WBC 6.2 RBC 4.32 Hgb 12.8 Hct 39.5 MCV 91.5 MCH 29.6 MCHC 32.3 RDW 13.9 Plt Count 112 L MPV 11.8 H Sodium 145 Potassium 3.8 Chloride 110 H Carbon Dioxide 25 Anion Gap 11 BUN 15 Creatinine 0.8 Creat Clearance w eGFR > 60 Random Glucose 105 Calcium 8.9 Total Bilirubin 0.6 AST 15 ALT 16 Alkaline Phosphatase 99 Total Protein 6.6 Albumin 3.4 Urine Color Yellow Urine Appearance Cloudy Urine pH 5.0 D Ur Specific [place] 1.021 Urine Protein Negative Urine Glucose (UA) Negative Urine Ketones Negative Urine Blood Negative Urine Nitrite Negative Urine Bilirubin Negative Urine Urobilinogen Negative Ur Leukocyte Esterase 3+ H Urine WBC (Auto) 104 Urine RBC (Auto) 45 Ur Epithelial Cells Rare Urine Bacteria Few Urine Mucus Few RPR Titer 08/26/18 08/26/18 08:00 18:47 WBC RBC Hgb Hct MCV MCH MCHC RDW Plt Count MPV Sodium Potassium Chloride Carbon Dioxide Anion Gap BUN Creatinine Creat Clearance w eGFR Random Glucose Calcium Total Bilirubin AST ALT Alkaline Phosphatase Total Protein Albumin Urine Color Yellow Urine Appearance Cloudy Urine pH 6.0 Ur Specific [place] 1.025 Urine Protein 1+ H Urine Glucose (UA) Negative Urine Ketones Negative Urine Blood 1+ H Urine Nitrite Negative Urine Bilirubin Negative Urine Urobilinogen Negative Ur Leukocyte Esterase 2+ H Urine WBC (Auto) 93 Urine RBC (Auto) 39 Ur Epithelial Cells Rare Urine Bacteria Urine Mucus Rare RPR Titer Nonreactive Labs reviewed: Urine cx shows gram positive UTI - Treatment Hospital Course: Detox Protocol Followed, Detoxed Safely, Responded well, Discharged Condition Good, Rehab Referral Accepted - Medication Discharge Medications: Ambulatory Orders NK [No Known Home Medication] 11/08/17 - Diagnosis (1) Abnormal finding on urinalysis Current Visit: Yes Status: Acute (2) HTN (hypertension), benign Current Visit: Yes Status: Chronic (3) 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
== END 2018-08-31 16:07 | disposition other institution (70) | DRG 773 ==
LOC: YASAS 11:21 → Y3N 15:17
PROC: HZ2ZZZZ Detoxification Services for Substance Abuse Treatment (ICD-10-PCS; principal; 2018-08-25)
DX: F11.23 Opioid dependence with withdrawal (principal); F12.20 Cannabis dependence, uncomplicated; F17.210 Nicotine dependence, cigarettes, uncomplicated; I10 Essential (primary) hypertension; N39.0 Urinary tract infection, site not specified; B95.2 Enterococcus as the cause of diseases classified elsewhere; R76.11 Nonspecific reaction to tuberculin skin test without active tuberculosis; R82.90 Unspecified abnormal findings in urine
CPT/HCPCS: 36415; 80053; 81003; 81015; 85027; 86593; 87086; 87186; 93005; 93010

== ENCOUNTER 2018-08-31 13:07 | Inpatient (IN) | payer OTHER ==
[2018-08-31] MEDS ORDERED: IBUPROFEN 400 MG TABLET (FP) PO PRN (13:50)
[2018-08-31] MEDS ORDERED: MAGNESIUM CITRATE 300 ML BOTTLE PO PRN (13:50)
[2018-08-31] MEDS ORDERED: MAGNESIUM HYDROX 2400MG/30ML ORAL SUSPENSION 30 ML CUP PO PRN (13:50)
[2018-08-31] MEDS ORDERED: ACETAMINOPHEN 325 MG TABLET (FP) PO PRN (13:50)
[2018-08-31] MEDS ORDERED: P-EPHED 60MG/TRIPROLIDI 2.5MG TABLET PO PRN (13:50)
[2018-08-31] MEDS ORDERED: LOPERAMIDE HCL 2 MG CAPSULE PO PRN (13:50)
[2018-08-31] MEDS ORDERED: MAG HYDROX/AL HYDROX/SIMETH 30 ML UNIT-DOSE CUP PO PRN (13:50)
[2018-08-31] MEDS ORDERED: guaiFENesin/D-METHORPHAN HB 10 ML UNIT-DOSE CUPS PO PRN (13:50)
[2018-08-31] MEDS ORDERED: MENTHOL/PHENOL 1 EACH UD MM PRN (13:50)
--- NOTE | 2018-08-31 13:54 | HP ---
[facility] Re[facility] Assess/Revision - Admission History Admitted to Rehab from: [facility] Date of Admission to Rehab: 08/31/18 - Findings Detox History & Physical reviewed: Yes Concur with findings: Yes Comments/Additional Findings: for rehab as protocol Inpatient Rehab Admission - Initial Determination Are CD services needed?: Yes Free of communicable disease: Yes Not in need of hospitalization: Yes - Rehab Admission Criteria Previous failed treatment: Yes Poor recovery environment: Yes Comorbidities: Yes Lacks judgement: No Patient is meeting Inpatient Rehab admission criteria:: Yes
[2018-08-31] MEDS: hydrOXYzine PAMOATE 50 MG CAPSULE (FP) PO PRN (21:28)
[2018-08-31] MEDS: MELATONIN 5 MG TABLETS PO PRN (21:28)
[2018-08-31] MEDS: THIAMINE HCL 100 MG TABLET (FP) PO SCH (21:28)
[2018-09-01] MEDS: hydrOXYzine PAMOATE 50 MG CAPSULE (FP) PO PRN ×2 (01:17→10:19)
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
[2018-09-01] MEDS ORDERED: PRENATAL VITAMINS W/ FOLIC ACID TABLET (FP) PO SCH (10:00)
[2018-09-01] MEDS ORDERED: FLU VACCINE QUAD 60 MCG/0.5 ML (MDV 18-19) IM ONE (12:00)
[2018-09-01] MEDS: THIAMINE HCL 100 MG TABLET (FP) PO SCH (21:43)
[2018-09-01] MEDS ORDERED: SUVOREXANT 10 MG TABLET PO PRN (22:00)
--- NOTE | 2018-09-02 06:31 | PN ---
[facility] Progress Note Note: Patient complains of difficulty to sleep despite taking Belsomra 10 mg at bedtime last night. Will increase Belsomra dosage to 15 mg po HS prn for insomnia
--- NOTE | 2018-09-02 13:18 | PN ---
[facility] Progress Note Note: Patient changed his mind about getting Belsomra for sleep. He wants Trazadone instead. Claims that he used to take Trazadone 100 mg at bedtime and slept well
[2018-09-02] MEDS: PRENATAL VITAMINS W/ FOLIC ACID TABLET (FP) PO SCH (14:38)
[2018-09-02] MEDS: hydrOXYzine PAMOATE 50 MG CAPSULE (FP) PO PRN (14:38)
[2018-09-02] MEDS: THIAMINE HCL 100 MG TABLET (FP) PO SCH (21:49)
[2018-09-02] MEDS ORDERED: traZODone HCL 100 MG TABLET (FP) PO SCH (22:00)
[2018-09-02] MEDS ORDERED: SUVOREXANT 15 MG TABLET PO PRN (22:00)
[2018-09-03] MEDS: hydrOXYzine PAMOATE 50 MG CAPSULE (FP) PO PRN ×3 (01:20→21:19)
[2018-09-03] MEDS: PRENATAL VITAMINS W/ FOLIC ACID TABLET (FP) PO SCH (10:13)
[2018-09-03] MEDS: THIAMINE HCL 100 MG TABLET (FP) PO SCH (21:18)
[2018-09-03] MEDS: traZODone HCL 50 MG TABLET (FP) PO SCH (21:18)
[2018-09-04] MEDS: hydrOXYzine PAMOATE 50 MG CAPSULE (FP) PO PRN (09:43)
[2018-09-04] MEDS: PRENATAL VITAMINS W/ FOLIC ACID TABLET (FP) PO SCH (09:43)
--- NOTE | 2018-09-04 12:42 | PN ---
[facility] Progress Note Note: PT REQUESTED SUBOXONE BY NURSE'S RECORD. ON SEEING PT TODAY, PT STATES "I CHANGED MY MIND. I DON'T WANT THAT". HOWEVER PT REPORTS HX OF BPH/GIVEN ALFUZOSIN IN [facility] AND WAS REFERRED TO UROLOGY AFTER DISCHARGING FROM [facility] IN BUT DID NOT FOLLOW UP BECAUSE "I WENT BACK TO USING DRUGS ON THE STREET'. PLEASE SEE PT'S CHART FOR COPY OF DETAILED MEDICAL HX FROM [facility] FACILITY. PT DID NOT MENTION ALL HX AT DETOX ADMISSION PROCESS. PT COMPLETED ANTIBIOTICS TX FOR UTI WHILE IN DETOX. DENIES ANY SX NOW EXCEPT "PEEING LITTLE BY LITTLE". WHENEVER HE URINATES. Vital Signs - 24 hr 09/04/18 09/04/18 03:30 06:50 Temperature 98 F Pulse Rate 82 Respiratory 18 18 Rate Blood Pressure 130/90 NAD. PLAN:FOLLOW UP WITH UROLOGY DIRECTED EARLIER. REPEAT UA; UC MEANWHILE WHILE IN REHAB. FOLLOW UP WITH RESULT.
[2018-09-04] MEDS: traZODone HCL 50 MG TABLET (FP) PO SCH (22:08)
[2018-09-04] MEDS: THIAMINE HCL 100 MG TABLET (FP) PO SCH (22:08)
[2018-09-04] MEDS: MELATONIN 5 MG TABLETS PO PRN (22:09)
[2018-09-05] MEDS: PRENATAL VITAMINS W/ FOLIC ACID TABLET (FP) PO SCH (09:50)
[2018-09-05 11:06] LABS: URINE APPEARANCE CLEAR; URINE BILIRUBIN NEGATIVE (<2.0 mg/dL); URINE COLOR LTYELLOW; URINE GLUCOSE (UA) NEGATIVE (NEGATIVE); URINE KETONE NEGATIVE (NEGATIVE); URINE LEUK ESTERASE 3+ (NEGATIVE); URINE NITRITE NEGATIVE (NEGATIVE); URINE PROTEIN NEGATIVE (NEGATIVE); URINE UROBILINOGEN NEGATIVE mg/dL (0.2-1.0)
[2018-09-05 13:18] LABS: URINE BACTERIA RARE /hpf (NONE SEEN)
[2018-09-05] MEDS: traZODone HCL 50 MG TABLET (FP) PO SCH (21:39)
[2018-09-05] MEDS: hydrOXYzine PAMOATE 50 MG CAPSULE (FP) PO PRN (21:40)
[2018-09-05] MEDS: THIAMINE HCL 100 MG TABLET (FP) PO SCH (21:40)
[2018-09-05] MEDS: MELATONIN 5 MG TABLETS PO PRN (21:40)
[2018-09-06] MEDS: PRENATAL VITAMINS W/ FOLIC ACID TABLET (FP) PO SCH (10:27)
[2018-09-06] MEDS: THIAMINE HCL 100 MG TABLET (FP) PO SCH (21:55)
[2018-09-06] MEDS: traZODone HCL 50 MG TABLET (FP) PO SCH (21:55)
[2018-09-07] MEDS: PRENATAL VITAMINS W/ FOLIC ACID TABLET (FP) PO SCH (10:10)
[2018-09-07] MEDS: traZODone HCL 50 MG TABLET (FP) PO SCH (22:02)
[2018-09-07] MEDS: THIAMINE HCL 100 MG TABLET (FP) PO SCH (22:02)
[2018-09-08] MEDS: PRENATAL VITAMINS W/ FOLIC ACID TABLET (FP) PO SCH (10:45)
[2018-09-08] MEDS: traZODone HCL 50 MG TABLET (FP) PO SCH (21:45)
[2018-09-08] MEDS: THIAMINE HCL 100 MG TABLET (FP) PO SCH (21:45)
[2018-09-09] MEDS: PRENATAL VITAMINS W/ FOLIC ACID TABLET (FP) PO SCH (10:19)
[2018-09-09] MEDS: THIAMINE HCL 100 MG TABLET (FP) PO SCH (22:05)
[2018-09-09] MEDS: traZODone HCL 50 MG TABLET (FP) PO SCH (22:05)
[2018-09-10] MEDS: PRENATAL VITAMINS W/ FOLIC ACID TABLET (FP) PO SCH (09:53)
[2018-09-10] MEDS: THIAMINE HCL 100 MG TABLET (FP) PO SCH (21:53)
[2018-09-10] MEDS: traZODone HCL 50 MG TABLET (FP) PO SCH (21:53)
[2018-09-10] MEDS: hydrOXYzine PAMOATE 50 MG CAPSULE (FP) PO PRN (21:54)
[2018-09-11] MEDS: PRENATAL VITAMINS W/ FOLIC ACID TABLET (FP) PO SCH (10:24)
[2018-09-11] MEDS: hydrOXYzine PAMOATE 50 MG CAPSULE (FP) PO PRN (21:56)
[2018-09-11] MEDS: THIAMINE HCL 100 MG TABLET (FP) PO SCH (21:56)
[2018-09-11] MEDS: traZODone HCL 50 MG TABLET (FP) PO SCH (21:56)
[2018-09-12] MEDS: hydrOXYzine PAMOATE 50 MG CAPSULE (FP) PO PRN ×2 (03:42→22:34)
[2018-09-12] MEDS: PRENATAL VITAMINS W/ FOLIC ACID TABLET (FP) PO SCH (10:43)
[2018-09-12] MEDS: THIAMINE HCL 100 MG TABLET (FP) PO SCH (22:33)
[2018-09-12] MEDS: traZODone HCL 50 MG TABLET (FP) PO SCH (22:33)
[2018-09-13] MEDS: hydrOXYzine PAMOATE 50 MG CAPSULE (FP) PO PRN ×2 (10:43→23:23)
[2018-09-13] MEDS: PRENATAL VITAMINS W/ FOLIC ACID TABLET (FP) PO SCH (10:43)
[2018-09-13] MEDS: traZODone HCL 50 MG TABLET (FP) PO SCH (22:19)
[2018-09-13] MEDS: THIAMINE HCL 100 MG TABLET (FP) PO SCH (22:19)
[2018-09-14] MEDS: hydrOXYzine PAMOATE 50 MG CAPSULE (FP) PO PRN ×2 (03:34→21:50)
[2018-09-14] MEDS: PRENATAL VITAMINS W/ FOLIC ACID TABLET (FP) PO SCH (10:49)
[2018-09-14] MEDS: THIAMINE HCL 100 MG TABLET (FP) PO SCH (21:50)
[2018-09-14] MEDS: traZODone HCL 50 MG TABLET (FP) PO SCH (21:50)
[2018-09-15] MEDS: hydrOXYzine PAMOATE 50 MG CAPSULE (FP) PO PRN ×2 (02:07→22:10)
[2018-09-15] MEDS: PRENATAL VITAMINS W/ FOLIC ACID TABLET (FP) PO SCH (10:31)
[2018-09-15] MEDS: THIAMINE HCL 100 MG TABLET (FP) PO SCH (22:10)
[2018-09-15] MEDS: traZODone HCL 50 MG TABLET (FP) PO SCH (22:22)
[2018-09-16] MEDS: PRENATAL VITAMINS W/ FOLIC ACID TABLET (FP) PO SCH (09:49)
[2018-09-16] MEDS: THIAMINE HCL 100 MG TABLET (FP) PO SCH (21:38)
[2018-09-16] MEDS: hydrOXYzine PAMOATE 50 MG CAPSULE (FP) PO PRN (21:38)
[2018-09-16] MEDS: traZODone HCL 50 MG TABLET (FP) PO SCH (21:38)
[2018-09-17] MEDS ORDERED: PT OWN MED DRAWER 7, Y5N ONE (09:10)
[2018-09-17] MEDS: PRENATAL VITAMINS W/ FOLIC ACID TABLET (FP) PO SCH (10:16)
[2018-09-17] MEDS: hydrOXYzine PAMOATE 50 MG CAPSULE (FP) PO PRN (22:03)
[2018-09-17] MEDS: THIAMINE HCL 100 MG TABLET (FP) PO SCH (22:03)
[2018-09-17] MEDS: traZODone HCL 50 MG TABLET (FP) PO SCH (22:15)
[2018-09-18 06:56] VITALS: BP 134/76; PULSE 79; TEMP 97.2
[2018-09-18] MEDS: PRENATAL VITAMINS W/ FOLIC ACID TABLET (FP) PO SCH (10:45)
--- NOTE | 2018-09-18 11:20 | PN ---
[facility] Progress Note Note: PT DECIDED TO DISCONTINUE REHAB FOR PERSONAL REASONS. PT HAS BEEN INFORMED IN THE PRESENCE OF HIS NURSE MS HOGAN, THE PRILIMINARY RESULTS OF HIS UA AND UC AND SENSITIVITY TEST RESULT PENDING. PT DECLINED TO RECEIVE TREATMENT HERE STATING HE IS GOING STRAIGHT TO HIS PMD DR VICTORINO Thorpe UROLOGIST WHO HAS TREATED HIS PROSTATE AND URINARY PROBLEMS IN THE PAST AT [facility]. PT IS ALERT O X 3. NAD. Vital Signs 09/18/18 06:55 Temperature 97.2 F L Pulse Rate 79 Respiratory 18 Rate Blood Pressure 134/76 Laboratory Tests 09/01/18 09/05/18 08:30 08:00 Urine Color Ltyellow Urine Appearance Clear Urine pH 6.0 Ur Specific [place] 1.013 Urine Protein Negative Urine Glucose (UA) Negative Urine Ketones Negative Urine Blood Negative Urine Nitrite Negative Urine Bilirubin Negative Urine Urobilinogen Negative Ur Leukocyte Esterase 3+ H Urine WBC (Auto) 52 Urine RBC (Auto) 2 Urine Bacteria Rare HIV 1&2 Antibody Screen Negative HIV P24 Antigen Negative Microbiology 09/17/18 07:40 Urine - Urine Clean Catch Urine Culture - Preliminary Group D Strep Or Entero Coccus NAD PLAN:COPY OF ABOVE LAB RESULTS GIVEN TO THE PATIENT TO TAKE TO HIS PMD DR. VICTORINO Thorpe UROLOGIST AT [facility] FOR FOLLOW UP TREATMENT TODAY.
--- NOTE | 2018-09-18 12:02 | PN ---
Psychiatric Progress Note Vital Signs: Vital Signs Period Temp Pulse Resp BP Sys/Martinez Pulse Ox Last 24 Hr 97.2 F 79 18-18 134/76 Date of Session: 09/18/18 Chief Complaint:: Discharge Note HPI: Patient addressing Opioid and Cannabis Dependence comorbid with Nicotine Dependence, Substance-Induced Mood Disorder and Substance-Induced Sleep Disorder ROS: HTN, PPD+ were medically managed Current Medications: Active Medications Generic Name Dose Route Start Last Admin Trade Name Freq PRN Reason Stop Dose Admin Acetaminophen 650 mg 08/31/18 13:50 Tylenol - PO Q4H PRN FEVER Al Hydroxide/Mg Hydroxide 30 ml 08/31/18 13:50 Mylanta Oral Suspension - PO Q6H PRN DYSPEPSIA Eucalyptus/Menthol/Phenol/Sorbitol 1 each 08/31/18 13:50 09/16/18 03:42 Cepastat Lozenge - MM 1 each Q4H PRN Administration SORE THROAT Guaifenesin 10 ml 08/31/18 13:50 Robitussin Dm - PO Q6H PRN COUGH Hydroxyzine Pamoate 50 mg 08/31/18 13:50 09/17/18 22:03 Vistaril - PO 50 mg Q4H PRN Administration AGITATION Ibuprofen 400 mg 08/31/18 13:50 09/09/18 10:19 Motrin - PO 400 mg Q6H PRN Administration Pain Level 4-6 Loperamide HCl 4 mg 08/31/18 13:50 Imodium - PO Q6H PRN DIARRHEA Magnesium Citrate 300 ml 08/31/18 13:50 Citroma - PO Q48H PRN CONSTIPATION Magnesium Hydroxide 30 ml 08/31/18 13:50 Milk Of Magnesia - PO DAILY PRN CONSTIPATION Melatonin 5 mg 08/31/18 22:00 09/05/18 21:40 Melatonin PO 5 mg HS PRN Administration INSOMNIA Multivit/Folic Acid/Iron 1 tab 09/02/18 13:40 09/18/18 10:45 Vitamins (Sjr) - PO Not Given DAILY ZACKARY Pseudoephedrine/Triprolidine 1 combo 08/31/18 13:50 Actifed - PO TID PRN NASAL CONGESTION Thiamine HCl 100 mg 08/31/18 22:00 09/17/18 22:03 Vitamin B1 - PO 100 mg HS ZACAKRY Administration Trazodone HCl 150 mg 09/03/18 22:00 09/17/18 22:15 Desyrel - PO Not Given HS ZACKARY Current Side Effect: No Lab tests ordered: Yes Lab tests reviewed: Yes Provider note:: Patient has completed this program today. He has met his treatment goals and will continue to address his issues in outpatient treatment at [facility] at [address] [place] [address]. 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 He is stable for discharge today Total face to face time:: 35 Mental Status Exam - Mental Status Exam Alert and Oriented to: Time, Place, Person Cognitive Function: Fair Patient Appearance: Well Groomed Mood: Hopeful, Euthymic Affect: Appropriate Patient Behavior: Cooperative Speech Pattern: Clear Voice Loudness: Normal Thought Process: Intact, Goal Oriented Thought Disorder: Not Present Hallucinations: Denies Suicidal Ideation: Denies Homicidal Ideation: Denies Insight/Judgement: Fair Sleep: Fair Appetite: Good Muscle strength/Tone: Normal Gait/Station: Normal Psychiatric Treatment Plan - Problem List (1) Opioid dependence Current Visit: Yes (2) Cannabis dependence Current Visit: No (3) Nicotine dependence Current Visit: No Qualifiers: Nicotine product type: cigarettes Substance use status: uncomplicated Qualified Code(s): F17.210 - Nicotine dependence, cigarettes, uncomplicated (4) Substance induced mood disorder Current Visit: Yes (5) Substance-induced sleep disorder Current Visit: Yes (6) HTN (hypertension), benign Current Visit: No (7) PPD positive Current Visit: No Initial treatment plan: Patient is discharged today and referred to [facility] for outpatient treatment
== END 2018-09-18 12:20 | disposition home or self-care (01) | DRG 772 ==
LOC: YASAS 13:07 → Y3W 13:09
PROVIDERS: ADMIT Psychiatry & Neurology Psychiatry; ATTEND Psychiatry & Neurology Psychiatry
PROC: HZ42ZZZ Group Counseling for Substance Abuse Treatment, Cognitive-Behavioral (ICD-10-PCS; principal; 2018-08-31)
DX: F11.20 Opioid dependence, uncomplicated (principal); F12.20 Cannabis dependence, uncomplicated; F17.210 Nicotine dependence, cigarettes, uncomplicated; F19.24 Other psychoactive substance dependence with psychoactive substance-induced mood disorder; F19.282 Other psychoactive substance dependence with psychoactive substance-induced sleep disorder; I10 Essential (primary) hypertension; R76.11 Nonspecific reaction to tuberculin skin test without active tuberculosis
CPT/HCPCS: 36415; 81003; 81015; 87086; 87186; 87389